=== PATIENT | female | born 1960 | race African-American/Black ===

== ENCOUNTER → 2019-06-08 | Outpatient (CLI) | payer OTHER ==
--- NOTE | 2019-06-08 14:09 | RADIOLOGY REPORT (SQ) ---
EXAM DESCRIPTION: KNEE BILATERAL 1-2 VIEWS COMPLETED DATE/TIME: 06/08/2019 1:31 pm REASON FOR STUDY: BILAT KNEE PAIN, BILAT KNEE REPLACEMENT, FREQUENT FALLS M25.561 PAIN IN RIGHT KNE E COMPARISON: None. NUMBER OF VIEWS: Two views right knee. Two views left knee. TECHNIQUE: AP and lateral radiographic images acquired of the right and left knee. LIMITATIONS: None. FINDINGS: MINERALIZATION: Normal. BONES: Bilateral total knee replacement. No findings to suggest loosening. No significant osteophyte s. JOINT: No effusion. No chondrocalcinosis. OTHER: No other significant finding. IMPRESSION: Bilateral total knee replacement. No worrisome findings. TECHNICAL DOCUMENTATION: JOB ID: [id number] [employer]- All Rights Reserved Reading location - IP/workstation name: [email or web address]
--- NOTE | 2019-06-08 14:37 | RADIOLOGY REPORT (SQ) ---
EXAM DESCRIPTION: NM 3 PHASE BONE SCAN COMPLETED DATE/TIME: 06/08/2019 1:19 pm REASON FOR STUDY: DAYANARA KNEE PAIN M25.561 PAIN IN RIGHT KNEE COMPARISON: Plain radiographs same date RADIONUCLIDE AND DOSE: 21.9 millicuries Tc99m HDP. The route of agent administration: Intravenous. ADDITIONAL DRUGS AND DOSES: None. TECHNIQUE: Following injection of the radiopharmaceutical, serial blood flow images acquired. Equil ibrium blood pool images then acquired. Routine delayed images at 3 hours acquired of the areas of c linical concern with additional focused images as needed. AREA OF INTEREST: Knees LIMITATIONS: None. FINDINGS: VASCULAR FLOW IMAGES: No asymmetry or focal areas of hyperemia. BLOOD POOL IMAGES: Asymmetry right along the patella. BONES: Focal asymmetry of the right patella compared with the left. Generalized photopenia from bila teral knee replacements. KIDNEYS: Kidneys not imaged. OTHER: No other significant finding. IMPRESSION: Focal asymmetry of the right patella compared with the left. Photopenia of bilateral knee replacements. COMMENT: Quality measure 147: Current bone scan is compared with any available plain radiographs, p rior bone scans, and CT/MRI. TECHNICAL DOCUMENTATION: JOB ID: [id number] [employer]- All Rights Reserved Reading location - IP/workstation name: [email or web address]
== END ==
LOC: RAD 09:42
PROVIDERS: ATTEND Orthopaedic Surgery
DX: M25.561 Pain in right knee (principal); M25.562 Pain in left knee
CPT/HCPCS: 73560; 78315; A9561; Q9969